=== PATIENT | female | born 1965 | race Caucasian/White ===

== ENCOUNTER 2017-10-25 19:40 | Emergency (ER) | payer OTHER ==
[2017-10-25 20:01] VITALS: BP 128/69
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
== END 2017-10-25 22:34 | disposition home or self-care (01) ==
LOC: ED 19:40
DX: R51 Headache (principal); M54.2 Cervicalgia; M79.605 Pain in left leg
CPT/HCPCS: 70450; 72125; 72170